=== PATIENT | male | born 1960 | race Caucasian/White ===

== ENCOUNTER → 2024-04-04 | Outpatient (CLI) | payer BC ==
[2024-04-04 14:37] LABS: BASO # 0.02 K/mm3 (0.02-0.10); EOS % 1.6 % (0.0-4.0); HEMATOCRIT 48.4 % (42.0-52.0); HEMOGLOBIN 15.1 g/dL (13.5-18.0); LYMPH# 2.06 K/mm3 (1.50-4.00); MEAN CELL VOLUME 92 fl (78-100); MEAN CORPUSCULAR HEMOGLOBIN 29 pg (27-31); MEAN CORPUSCULAR HGB CONC 31 g/dL (33-37); MEAN PLATELET VOLUME 9.7 fl (7.4-10.4); MONO # 0.54 K/mm3 (0.20-0.80); NEU # 3.44 K/mm3 (1.40-6.50); PLATELET COUNT 206 K/mm3 (130-400); RED BLOOD COUNT 5.28 M/mm3 (4.20-5.60); RED CELL DISTRIBUTION WIDTH 15.1 % (11.5-14.5); WHITE BLOOD COUNT 6.2 K/mm3 (4.8-10.8)
[2024-04-04 14:43] LABS: ALBUMIN 4.1 g/dL (3.4-4.8); SODIUM 138 mmol/L (136-145)
[2024-04-04 14:44] LABS: CALCIUM 9.8 mg/dL (8.3-10.5)
[2024-04-04 14:45] LABS: GLUCOSE 90 mg/dL (75-110); TOTAL PROTEIN 8.2 g/dL (6.2-8.1)
[2024-04-04 14:46] LABS: CARBON DIOXIDE 25 mmol/L (23-31)
[2024-04-04 14:47] LABS: TOTAL BILIRUBIN 0.5 mg/dL (0.2-1.2)
[2024-04-04 14:51] LABS: AST-SGOT 20 U/L (5-34)
[2024-04-04 14:52] LABS: ALT/SGPT 16 U/L (0-55)
[2024-04-04 15:05] LABS: TROPONIN-I < 0.030 ng/mL (0.00-0.033)
== END ==
LOC: LAB 14:10
PROVIDERS: Nurse Practitioner Family
DX: J98.11 Atelectasis (principal); I89.0 Lymphedema, not elsewhere classified

== ENCOUNTER → 2024-04-10 | Outpatient (CLI) | payer BC ==
[~2024-04-10] MED LIST: Iohexol 300 - 100 ML VIAL IV ONE; NS 100 ML IV SCH
== END ==
LOC: RAD 14:30
DX: I26.99 Other pulmonary embolism without acute cor pulmonale (principal)
CPT/HCPCS: Q9967